=== PATIENT | female | born 1960 | race Caucasian/White ===

== ENCOUNTER 2017-06-03 08:25 | Day surgery (SDC) | payer BC ==
[2017-05-23 14:44] VITALS: BMI 26.5
[~2017-06-03 08:25] MED LIST: LEVOFLOXACIN 500 MG PREMIX BAG IVPB ONE
[2017-06-03 09:10] VITALS: TEMP 98
[2017-06-03] MEDS ORDERED: LEVOFLOXACIN 500 MG IVPB 500 MG/100 ML BAG IVPB ONE (09:39)
[2017-06-03] MEDS ORDERED: oxyCODONE HCL 5 MG TABLET PO PRN (10:10)
[2017-06-03] MEDS ORDERED: ONDANSETRON 4 MG/2 ML VIAL IVPUSH PRN (10:10)
[2017-06-03] MEDS ORDERED: LEVOFLOXACIN 500 MG PREMIX BAG IVPB ONE (10:10)
[2017-06-03] MEDS ORDERED: LACTATED RINGERS SOLUTION 1,000 ML IV SCH (10:15)
[2017-06-03 12:18] VITALS: BP 119/54; PULSE 55
--- NOTE | 2017-06-03 12:56 | OP ---
Operative Note - Note: Operative Date: 06/03/17 Pre-Operative Diagnosis: left renal stone Operation: left eswl Findings: 5 mm left mid pole stone Post-Operative Diagnosis: Same as Pre-op Surgeon: Angel Aparicio Anesthesia: Fractional
--- NOTE | 2017-06-03 21:49 | OP ---
DATE OF OPERATION: 06/03/2017 PREOPERATIVE DIAGNOSIS: Left renal stone. POSTOPERATIVE DIAGNOSIS: Left renal stone. PROCEDURE: Left extracorporeal shock wave lithotripsy. ATTENDING: Sánchez Steven MD ANESTHESIA: Fractional. DESCRIPTION OF OPERATION: Patient was brought in the operating room and placed in supine position on the operating room table. Ultrasonography and fluoroscopy were performed. A 5-mm left mid-pole stone was found. The patient was then given anesthesia and preoperative antibiotics. Once the patient was sedated and comfortable, extracorporeal shock wave lithotripsy was commenced; 2500 impulses at 18 joules of power were administered to the stone. Excellent fragmentation of the stone was noted under real-time ultrasonography and fluoroscopy. The patient tolerated the procedure very well. No complications were noted, and the disposition of the patient was to the recovery room. SÁNCHEZ STEVEN M.D. [id number]
== END 2017-06-03 11:15 | disposition home or self-care (01) ==
LOC: JASU-SURG 08:25
PROVIDERS: ATTEND Urology
PROC: 0TF4XZZ Fragmentation in Left Kidney Pelvis, External Approach (ICD-10-PCS; principal; 2017-06-03 10:15)
DX: N20.0 Calculus of kidney (principal)

== ENCOUNTER 2019-11-30 09:34 | Day surgery (SDC) | payer BC ==
[2019-11-27 12:34] VITALS: BMI 25.7
[2019-11-30] MEDS ORDERED: MIDAZOLAM HCL 2 MG/2 ML SINGLE DOSE VIAL ONE ×2 (11:37)
--- NOTE | 2019-11-30 12:39 | OP ---
Operative Note - Note: Operative Date: 11/30/19 Pre-Operative Diagnosis: Left renal stone Operation: Left ESWL Findings: 6 mm lower pole left renal stone Post-Operative Diagnosis: Same as Pre-op Surgeon: Angel Aparicio Anesthesia: Fractional Estimated Blood Loss (mls): 0 Operative Report Dictated: Yes
[2019-11-30 13:30] VITALS: BP 116/50; PULSE 53; TEMP 99
--- NOTE | 2019-11-30 20:44 | OP ---
DATE OF OPERATION: 11/30/2019 PREOPERATIVE DIAGNOSIS: Left renal stone. POSTOPERATIVE DIAGNOSIS: Left renal stone. PROCEDURE: Left extracorporeal shockwave lithotripsy. ATTENDING: Sánchez Aparicio M.D. ANESTHESIA: Fractional. DESCRIPTION OF PROCEDURE: Patient was brought in the operating room, placed in a supine position on the operating room table. Ultrasonography and fluoroscopy were performed. A 6-cm left lower pole stone was identified. Anesthesia, preoperative antibiotics were then administered. Shockwave lithotripsy was then started, 2500 impulses, 17 joules of power were administered to the stone with excellent fragmentation of the stone noted under real time ultrasonography and fluoroscopy. No complications were noted. DISPOSITION: To recovery room. SÁNCHEZ STEVEN M.D. [id number]
== END 2019-11-30 13:28 | disposition home or self-care (01) ==
LOC: JASU-SURG 09:34
PROVIDERS: ATTEND Urology
PROC: 0TF4XZZ Fragmentation in Left Kidney Pelvis, External Approach (ICD-10-PCS; principal; 2019-11-30 11:45)
DX: N20.0 Calculus of kidney (principal)

== ENCOUNTER 2022-01-04 04:09 | Day surgery (SDC) | payer BC ==
[2022-01-01 12:26] VITALS: BMI 27.7
[2022-01-04 11:43] VITALS: TEMP 98
[2022-01-04 12:07] VITALS: RESP 15
[2022-01-04 12:16] VITALS: BP 130/81; PULSE 51
== END 2022-01-04 12:30 | disposition home or self-care (01) ==
LOC: JASU-ENDO 04:09
PROVIDERS: ATTEND Internal Medicine Gastroenterology
PROC: 0DBP8ZX Excision of Rectum, Via Natural or Artificial Opening Endoscopic, Diagnostic (ICD-10-PCS; principal; 2022-01-04 10:15)
DX: Z51.11 Encounter for antineoplastic chemotherapy (principal); D12.5 Benign neoplasm of sigmoid colon; K62.1 Rectal polyp; K57.30 Diverticulosis of large intestine without perforation or abscess without bleeding; Z86.010 Personal history of colon polyps; Z80.0 Family history of malignant neoplasm of digestive organs
CPT/HCPCS: 88305-TC

== ENCOUNTER → 2023-03-13 | Day surgery (SDC) | payer BC | END | disposition home or self-care (01) | LOC: JRADUS-SUR 10:42 | PROVIDERS: ATTEND Obstetrics & Gynecology | PROC: 0H9U3ZX Drainage of Left Breast, Percutaneous Approach, Diagnostic (ICD-10-PCS; principal; 2023-03-13) | DX: D24.2 Benign neoplasm of left breast (principal); N60.12 Diffuse cystic mastopathy of left breast | CPT/HCPCS: 19083; 19084; 77065-TC; 87899; A4648 ==